=== PATIENT | male | born 1955 | race Hispanic/Latino ===

== ENCOUNTER 2022-08-04 07:15 | Day surgery (SDC) | payer BC ==
[2022-08-03 11:45] VITALS: BP 177/84
[2022-08-03 12:48] LABS: BASOPHILS % (AUTO) 0.7 % (0.0-5.0); EOSINOPHILS % (AUTO) 1.5 % (0.0-8.0); HEMATOCRIT 37.9 % (42-54); LYMPHOCYTES % (AUTO) 20.1 % (21.0-51.0); MEAN CORPUSCULAR HEMOGLOBIN 29.3 pg (27.0-33.0); MEAN CORPUSCULAR HGB CONC 33.5 g/dL (32.0-36.0); MEAN CORPUSCULAR VOLUME 87.3 fL (79-99); MONOCYTES % (AUTO) 7.7 % (3.0-13.0); NEUTROPHILS % (AUTO) 69.2 % (40.0-77.0); PLATELET COUNT (AUTO) 201 K/uL (130-400); RED BLOOD CELL COUNT(AUTO) 4.34 MIL/uL (4.50-6.20); RED CELL DISTRIBUTION WIDTH 12.6 % (11.0-15.5); WHITE BLOOD COUNT (AUTO) 6.1 K/uL (4.8-10.8)
[2022-08-03 12:54] LABS: CREATININE 1.3 mg/dL (0.5-1.5); POTASSIUM 4.5 mmol/L (3.5-5.1)
[2022-08-03 13:38] LABS: INR 0.93 (0.85-1.15); PROTHROMBIN TIME 10.2 SEC (9.6-11.6)
[2022-08-03 13:40] LABS: PARTIAL THROMBOPLASTIN TIME 26.9 SEC (26.3-35.5)
[2022-08-04] VITALS (16 sets, daily range): BP systolic 106–157; BP diastolic 58–89
[~2022-08-04] VITALS: Ht 170.2 cm; Wt 90.3 kg
[~2022-08-04 07:15] MED LIST: GLIP10TA9 PO; METF-446 PO
[2022-08-04] MEDS ORDERED: CEFTRIAXONE 1G VIAL ONE (08:01)
[2022-08-04] MEDS: 0.9%NACL 1000ML 1,000 ML IV ONE ×2 (08:03→09:14)
[2022-08-04] MEDS ORDERED: LIDOCAINE HCL MPF 1% 5ML VIAL ONE (09:17)
[2022-08-04] MEDS ORDERED: DEXAMETHASONE SOD PHOSPHATE 4 MG/ML 1ML VIAL ONE (09:17)
[2022-08-04] MEDS ORDERED: ONDANSETRON 4MG INJ ONE (09:18)
[2022-08-04] MEDS ORDERED: MIDAZOLAM HCL 1 MG/ML 2ML VIAL ONE (09:18)
[2022-08-04] MEDS ORDERED: PROPOFOL 10 MG/ML 20ML VIAL IV ONE (09:18)
[2022-08-04] MEDS ORDERED: NEOSTIGMINE 5MG/5ML SYR IV ONE (09:18)
[2022-08-04] MEDS ORDERED: ROCURONIUM 10MG/1ML SYR 10 MG/ML ML ONE (09:18)
[2022-08-04] MEDS ORDERED: GLYCOPYRROLATE 1 MG/5 ML SYRINGE ONE (09:18)
[2022-08-04] MEDS ORDERED: FENTANYL CITRATE PF 50 MCG/1 ML 2ML VIAL ONE ×2 (09:19→09:46)
[2022-08-04] MEDS ORDERED: FISH OIL PO (09:34)
[2022-08-04] MEDS ORDERED: GARL1000 PO (09:34)
[2022-08-04] MEDS ORDERED: CINNAMON PO (09:34)
[2022-08-04] MEDS ORDERED: LISI10TA24 PO (09:34)
[2022-08-04] MEDS ORDERED: PIOG45TA64 PO (09:34)
[2022-08-04] MEDS ORDERED: ATOR40TA71 PO (09:34)
[2022-08-04] MEDS ORDERED: tumeric PO (09:34)
[2022-08-04] MEDS ORDERED: ASCO100031 PO (09:34)
[2022-08-04] MEDS ORDERED: BUPIVACAINE/PF 0.25% 10ML VIAL IJ ONE (09:52)
[2022-08-04] MEDS ORDERED: KETOROLAC 30MG VIAL (30MG/ML) ONE (10:20)
[2022-08-04] MEDS ORDERED: CEPH500B PO (11:44)
[2022-08-04] MEDS ORDERED: ACET-2079 PO (11:45)
== END 2022-08-04 12:10 | disposition home or self-care (01) ==
LOC: DAH 07:15
PROVIDERS: ATTEND Urology
DX: N47.1 Phimosis (principal); Z20.822 Contact with and (suspected) exposure to COVID-19; I10 Essential (primary) hypertension; E11.9 Type 2 diabetes mellitus without complications; Z79.01 Long term (current) use of anticoagulants; Z79.899 Other long term (current) drug therapy; Z85.46 Personal history of malignant neoplasm of prostate
CPT/HCPCS: 80048; 85025; 85610; 85730; 87426; 36415; 93005; 54161; 82948 ×2; A6260; J1100; A4663; J3010 ×2; J3490 ×3; J2710; J7030; J0696; J2250; J2704; J2405; J1885; A4930; A4215; A4223; A4222; A4221; A4600

== ENCOUNTER → 2023-11-28 | Outpatient (CLI) | payer OTHER ==
[~2023-11-28] MED LIST changes: +ACET-2079 PO; +ASCO100031 PO; +ATOR40TA71 PO; +CEPH500B PO; +CINNAMON PO; +FISH OIL PO; +GARL10002 PO; +LISI10TA24 PO; +PIOG45TA64 PO; +tumeric PO
== END | disposition home or self-care (01) ==
LOC: SHCH 12:14
PROVIDERS: ATTEND Internal Medicine Cardiovascular Disease
DX: I35.0 Nonrheumatic aortic (valve) stenosis (principal); I70.203 Unspecified atherosclerosis of native arteries of extremities, bilateral legs; R07.9 Chest pain, unspecified; I73.9 Peripheral vascular disease, unspecified; I87.1 Compression of vein; I87.2 Venous insufficiency (chronic) (peripheral); E78.5 Hyperlipidemia, unspecified; E11.9 Type 2 diabetes mellitus without complications; I10 Essential (primary) hypertension
CPT/HCPCS: 93306; 93925; 93970

== ENCOUNTER → 2023-11-30 | Outpatient (CLI) | payer OTHER ==
[2023-11-30] MEDS: REGADENOSON 0.4 MG/5 ML PF SYG IVP ONE (15:01)
== END | disposition home or self-care (01) ==
LOC: SHCH 08:12
PROVIDERS: ATTEND Internal Medicine Cardiovascular Disease
DX: R07.9 Chest pain, unspecified (principal); R94.31 Abnormal electrocardiogram [ECG] [EKG]; R05.9 Cough, unspecified
CPT/HCPCS: 78452; 93017; J2785; A9500 ×2; 96374